=== PATIENT | female | born 1995 | race Two or more races ===

== ENCOUNTER → 2016-04-21 | Outpatient (CLI) | payer SELFPAY | LOC: RAD 09:12 | PROVIDERS: ATTEND Nurse Practitioner Women's Health | DX: Z34.81 Encounter for supervision of other normal pregnancy, first trimester (principal) | CPT/HCPCS: 76801 ==

== ENCOUNTER → 2016-09-06 | Outpatient (CLI) | payer SELFPAY ==
--- NOTE | 2016-09-06 15:18 | RADIOLOGY REPORT (SQ) ---
EXAM DESCRIPTION: U/S OB 14+ TRNABD 1GES W/O DOP COMPLETED DATE/TIME: 09/06/2016 3:08 pm REASON FOR STUDY: ENCOUNTER FOR SUPERVISION OF OTHER NORMAL , 2ND TRIMESTER (Z34.82) Z34.82 ENCOUNTER FOR SUPRVSN OF NORMAL , SECOND TRI COMPARISON: None. TECHNIQUE: Static and Dynamic grayscale imaging performed of gravid uterus using transabdominal appr oach. Additional selected color Doppler and spectral images recorded. All stored on PACS. LIMITATIONS: None. FINDINGS: EGA: 26 weeks 1 day. FELICITA: 12/12/2016. EFW: 885 g. PERCENTILE: 40th RANDY: 10.3 PLACENTA: Anterior location. PRESENTATION: Breech. ANATOMY: HEART RATE: 140 beats per minute. FOUR CHAMBER HEART: Visualized. THREE VESSEL CORD: Yes. CORD INSERTION: Visualized. KIDNEYS AND BLADDER: Visualized. Appear normal. STOMACH: Visualized. Appears normal. SPINE: Normal as visualized. BRAIN AND LATERAL VENTRICLES: Visualized. Appear normal. OTHER: No other significant finding. MATERNAL ADNEXA: Maternal ovaries not visualized. CERVICAL LENGTH: Not visualized. OTHER: No other significant finding. IMPRESSION: LIVING INTRAUTERINE . ESTIMATED GESTATIONAL AGE 26 WEEKS 1 DAY. NO VISUALIZED ANOMALIES. Trimester of : Second trimester - 13 weeks 1 day to 27 weeks 6 days. TECHNICAL DOCUMENTATION: JOB ID: [id number]- All Rights Reserved
== END ==
LOC: RAD 14:10
PROVIDERS: ATTEND Nurse Practitioner Women's Health
DX: Z34.82 Encounter for supervision of other normal pregnancy, second trimester (principal)
CPT/HCPCS: 76805

== ENCOUNTER 2016-11-21 10:14 | Outpatient (CLI) | payer SELFPAY ==
[2016-11-21 10:52] LABS: APPEARANCE,URINE CLOUDY; BILIRUBIN,URINE NEGATIVE (NEGATIVE); GLUCOSE, URINE NEGATIVE (NEGATIVE); KETONES,URINE NEGATIVE (NEGATIVE); LEUKOCYTE ESTERASE,URINE LARGE (NEGATIVE); NITRITE,URINE NEGATIVE (NEGATIVE); PROTEIN,URINE NEGATIVE (NEGATIVE); URINE SPECIFIC GRAVITY 1.015; UROBILINOGEN,URINE NEGATIVE mg/dL (<2.0)
[2016-11-21 11:01] LABS: ABSOLUTE EOSINOPHILS # (AUTO) 0.1 10^3/uL (0.0-0.6); ABSOLUTE LYMPHOCYTES (AUTO) 2.2 10^3/uL (0.5-4.7); ABSOLUTE MONOCYTES (AUTO) 0.7 10^3/uL (0.1-1.4); ABSOLUTE NEUT (AUTO) 7.4 10^3/uL (1.7-8.2); BASOPHILS % (AUTO) 0.3 % (0-2); EOSINOPHILS % (AUTO) 0.9 % (0-6); HEMATOCRIT 36.4 % (36.0-47.0); HEMOGLOBIN 12.2 g/dL (12.0-15.5); HGB HCT DIFFERENCE 0.2; LYMPHOCYTES % (AUTO) 21.2 % (13-45); MEAN CORPUSCULAR HEMOGLOBIN 31.2 pg (27.0-33.4); MEAN CORPUSCULAR HGB CONC 33.7 g/dL (32.0-36.0); MEAN CORPUSCULAR VOLUME 93 fl (80-97); MONOCYTES % (AUTO) 6.6 % (3-13); RED BLOOD COUNT 3.92 10^6/uL (3.72-5.28); RED CELL DISTRIBUTION WIDTH 13.2 % (11.5-14.0); WHITE BLOOD COUNT 10.5 10^3/uL (4.0-10.5)
[2016-11-21 11:07] LABS: URINE BARBITURATES SCREEN NEGATIVE; URINE METHADONE SCREEN NEGATIVE; URINE OPIATES LOW NEGATIVE; URINE PHENCYCLIDINE SCREEN NEGATIVE
--- NOTE | 2016-11-21 11:08 | Non Stress Test Report ---
Non Stress Test Datetime Report Generated by CPN: 11/21/2016 11:08 DEMOGRAPHIC EGA NST: 37.1 INDICATION Indication for Study: Ordered by Provider MONITORING Monitor Explained: Monitor Explained; Test Explained; Patient Verbalized Understanding Time on Monitor: 11/21/2016 10:27 Time off Monitor: 11/21/2016 11:05 NST Duration: 38 NST INTERVENTIONS NST Interventions: None Physician Notified NST: P. Turcios, CNM BABY A: [id number] BABY A Movement : Present Contraction Frequency : none FHR Baseline : 140 Accelerations : 15X15 Decelerations : None Variability : Moderate 6-25bpm NST Review: Meets Criteria for Reactive NST NST Review and Verified By : JASON Stoddard Results: Reactive NST Results: Reactive NST REPORT Report Trigger: Send Report
[2016-11-21 11:14] LABS: ALANINE AMINOTRANSFERASE 30 U/L (9-52); ALBUMIN 3.5 g/dL (3.5-5.0); ALKALINE PHOSPHATASE 166 U/L (38-126); ANION GAP 9 (5-19); ASPARTATE AMINO TRANSFERASE 17 U/L (14-36); BILIRUBIN,DIRECT 0.3 mg/dL (0.0-0.4); BILIRUBIN,TOTAL 0.6 mg/dL (0.2-1.3); BLOOD UREA NITROGEN 8 mg/dL (7-20); CALCIUM 9.1 mg/dL (8.4-10.2); CARBON DIOXIDE 22 mmol/L (22-30); CHLORIDE 105 mmol/L (98-107); CREATININE RESULT 0.51 mg/dL (0.52-1.25); GLUCOSE 97 mg/dL (75-110); LDH 468 U/L (313-618); TOTAL PROTEIN 6.7 g/dL (6.3-8.2); URIC ACID 4.2 mg/dL (2.5-6.2)
[2016-11-21 11:18] LABS: URINE CREATININE 99.8 mg/dL (16-327); URINE PROTEIN 9.4 mg/dL (<12)
== END 2016-11-21 11:38 | disposition home or self-care (01) ==
LOC: LC 10:14
PROVIDERS: ATTEND Obstetrics & Gynecology
PROC: 4A1HXCZ Monitoring of Products of Conception, Cardiac Rate, External Approach (ICD-10-PCS; principal; 2016-11-21)
DX: O26.893 Other specified pregnancy related conditions, third trimester (principal); Z3A.37 37 weeks gestation of pregnancy
CPT/HCPCS: 36415; 59025; 80053; 80307; 81001; 82570; 83615; 84156; 84550; 85025

== ENCOUNTER 2016-11-23 11:50 | Outpatient (CLI) | payer SELFPAY ==
[2016-11-23 12:45] LABS: AMNISURE (ROM) NEGATIVE (NEGATIVE)
[2016-11-23 12:58] LABS: APPEARANCE,URINE CLOUDY; BILIRUBIN,URINE NEGATIVE (NEGATIVE); GLUCOSE, URINE NEGATIVE (NEGATIVE); KETONES,URINE NEGATIVE (NEGATIVE); LEUKOCYTE ESTERASE,URINE MODERATE (NEGATIVE); NITRITE,URINE NEGATIVE (NEGATIVE); PROTEIN,URINE NEGATIVE (NEGATIVE); URINE SPECIFIC GRAVITY 1.023; UROBILINOGEN,URINE NEGATIVE mg/dL (<2.0)
[2016-11-23 13:28] LABS: URINE BARBITURATES SCREEN NEGATIVE; URINE METHADONE SCREEN NEGATIVE; URINE OPIATES LOW NEGATIVE; URINE PHENCYCLIDINE SCREEN NEGATIVE
== END 2016-11-23 13:00 | disposition home or self-care (01) ==
LOC: LC 11:50
PROVIDERS: ATTEND Student in an Organized Health Care Education/Training Program
PROC: 4A1HXCZ Monitoring of Products of Conception, Cardiac Rate, External Approach (ICD-10-PCS; principal; 2016-11-23)
DX: Z36 Encounter for antenatal screening of mother (principal); Z3A.37 37 weeks gestation of pregnancy
CPT/HCPCS: 80307; 81005; 84112

== ENCOUNTER 2016-12-18 06:28 | Inpatient (IN) | payer SELFPAY ==
[2016-12-18] MEDS ORDERED: OXYTOCIN/NORMAL SALINE 20 UNIT/1,000 ML RTUINJ IV PRN ×2 (06:42→15:39)
[2016-12-18] MEDS ORDERED: RINGERS SOLUTION,LACTATED 300 ML IV ONE (06:42)
[2016-12-18] MEDS ORDERED: RINGERS SOLUTION,LACTATED 1,000 ML IV PRN (06:42)
[2016-12-18 07:12] LABS: APPEARANCE,URINE CLOUDY; BILIRUBIN,URINE NEGATIVE (NEGATIVE); GLUCOSE, URINE NEGATIVE (NEGATIVE); KETONES,URINE NEGATIVE (NEGATIVE); LEUKOCYTE ESTERASE,URINE MODERATE (NEGATIVE); NITRITE,URINE NEGATIVE (NEGATIVE); PROTEIN,URINE NEGATIVE (NEGATIVE); URINE SPECIFIC GRAVITY 1.031; UROBILINOGEN,URINE NEGATIVE mg/dL (<2.0)
[2016-12-18] MEDS ORDERED: MISOPROSTOL 0.2 MG TABLET ONE (07:24)
[2016-12-18] MEDS ORDERED: OXYTOCIN/NORMAL SALINE 20 UNIT/1,000 ML RTUINJ ONE ×2 (07:24→17:18)
[2016-12-18] MEDS ORDERED: LIDOCAINE 1% INJ-PF (10 MG/ML) 30 ML SDV ONE (07:24)
[2016-12-18 07:26] LABS: URINE BARBITURATES SCREEN NEGATIVE; URINE METHADONE SCREEN NEGATIVE; URINE OPIATES LOW NEGATIVE; URINE PHENCYCLIDINE SCREEN NEGATIVE
[2016-12-18 07:37] LABS: ABSOLUTE EOSINOPHILS # (AUTO) 0.1 10^3/uL (0.0-0.6); ABSOLUTE LYMPHOCYTES (AUTO) 2.4 10^3/uL (0.5-4.7); ABSOLUTE MONOCYTES (AUTO) 0.7 10^3/uL (0.1-1.4); ABSOLUTE NEUT (AUTO) 5.7 10^3/uL (1.7-8.2); BASOPHILS % (AUTO) 0.4 % (0-2); EOSINOPHILS % (AUTO) 1.3 % (0-6); HEMATOCRIT 36.5 % (36.0-47.0); HEMOGLOBIN 12.4 g/dL (12.0-15.5); HGB HCT DIFFERENCE 0.7; LYMPHOCYTES % (AUTO) 26.9 % (13-45); MEAN CORPUSCULAR HGB CONC 33.8 g/dL (32.0-36.0); MEAN CORPUSCULAR VOLUME 92 fl (80-97); MONOCYTES % (AUTO) 7.7 % (3-13); RED BLOOD COUNT 3.98 10^6/uL (3.72-5.28); SEGMENTED NEUTROPHILS % (AUTO) 63.7 % (42-78)
[2016-12-18] MEDS ORDERED: NALBUPHINE HCL INJ 10 MG/1 ML AMPULE INJ ONE (11:29)
[2016-12-18] MEDS ORDERED: PROMETHAZINE HCL INJ 25 MG/1 ML VIAL IV ONE (11:30)
[2016-12-18] MEDS ORDERED: PROMETHAZINE HCL INJ 25 MG/1 ML VIAL ONE (11:31)
[2016-12-18] MEDS ORDERED: NALBUPHINE HCL INJ 10 MG/1 ML AMPULE ONE (11:32)
[2016-12-18] MEDS ORDERED: ACETAMINOPHEN 325 MG TABLET PO ONE (13:43)
[2016-12-18] MEDS ORDERED: ACETAMINOPHEN 325 MG TABLET ONE (13:44)
[2016-12-18] MEDS ORDERED: EPHEDRINE SULFATE INJ 50 MG/1 ML AMPULE ONE (13:55)
[2016-12-18] MEDS ORDERED: BUPIVACAINE HCL 0.25 % INJ/PF (2.5 MG/1 ML) 30 ML VIAL ONE (13:56)
[2016-12-18] MEDS ORDERED: FENTANYL/BUPIVACAINE/NS/PF 200 MCG/100 ML RTUINJ EPI ONE (13:56)
[2016-12-18] MEDS ORDERED: LIDOCAINE 2% INJ-PF (20 MG/ML) 10 ML AMPUL ONE (14:41)
[2016-12-18] MEDS ORDERED: ZOLPIDEM TARTRATE 5 MG TABLET PO PRN (15:39)
[2016-12-18] MEDS ORDERED: DIPH/PERTUSS(ACELL)/TETANUS VAC/PF 0.5 ML SYR (>=10YO) IM PRN (15:39)
[2016-12-18] MEDS ORDERED: BENZOCAINE/MENTHOL AEROSOL SPRAY 56 ML TOP PRN (15:39)
[2016-12-18] MEDS ORDERED: MEASLES,MUMPS&RUBELLA VACC/PF 0.5 ML VIAL SUBCUT PRN (15:39)
[2016-12-18] MEDS ORDERED: DIBUCAINE 1% OINTMENT 28 GM TP PRN (15:39)
[2016-12-18] MEDS ORDERED: ACETAMINOPHEN WITH CODEINE #3 TABLET PO PRN ×2 (15:39)
--- NOTE | 2016-12-18 16:49 | Delivery Summary ---
Del Sum A-C Datetime Report Generated by CPN: 12/18/2016 16:49 DELIVERY PERSONNEL DELIVERY PERSONNEL: [id number] Delivery Doctor:: Rekha Hou CNM Nurse Die Cast Patternmaker Certified:: Rekha Hou CNM Labor and Delivery Nurse:: Nneka Lal RNlab manager Nurse:: Edilia Hernandez RN Nursery Nurse:: Lorena Wu RN Nursery Nurse:: Krys Griffiths RN Braille Translator/NURSING TECHN: Kriss Head, AUTO APPRAISER Braille Translator/NURSING TECHN: Carmenfranny Clark, NURSING TECHN II MATERNAL INFORMATION Delivery Anesthesia: Epidural Medications After Delivery: Pitocin Bolus-Please Comment Meds After Delivery Comment: Pitocin 20 units in 1L NS bolusing per order Estimated Blood Loss (ml): 200 Maternal Complications: None Provider Comments: of viable female infant, head, shoulders, and body delivered without difficutly, infant with spontaneous cry and respirations, to maternal abdomen, cord clamped X2, cut free by pts mother, cord avulsed from placenta, placenta manually removed, vagina and perineum inspected no lacerations noted, hemostasis acheived with external fundal massage and IV pitocin, mother and infant in stable condition, routine pp care. LABOR SUMMARY EDC: 12/09/2016 00:00 No. Babies in Womb: 1 Attempted: No Labor Anesthesia: Epidural LABOR INFORMATION Reason for Induction: Post Dates Onset of Labor: 12/18/2016 13:38 Complete Dilatation: 12/18/2016 15:08 Oxytocin: Induction Group B Beta Strep: negative Antibiotics # of Doses: 0 Antibiotics Time of Last Dose: n/a Name of Antibiotic Given: n/a Steroids Given: None Reason Steroids Not Administered: Not Applicable MEMBRANES Membranes Rupture Method: Artificial Rupture of Membranes: 12/18/2016 11:25 Length of Rupture (hr): 3.90 Amniotic Fluid Color: Clear Amniotic Fluid Amount: Scant Amniotic Fluid Odor: Normal STAGES OF LABOR Stage 1 hr: 1 Stage 1 min: 30 Stage 2 hr: 0 Stage 2 min: 11 Stage 3 hr: 0 Stage 3 min: 5 Total Time in Labor hr: 1 Total Time in Labor min: 46 VAGINAL DELIVERY Episiotomy: None Laceration Extension: N/A Laceration Type: None Laceration Repair: Not Applicable Laceration Repair Note: n/a Sponge Count Correct: N/A Sharps Count Correct: N/A CSECTION DELIVERY Primary Indication: N/A Secondary Indication: N/A CSection Urgency: n/a CSection Incidence: N/A Labor: N/A Elective: N/A CSection Incision: N/A BABY A INFORMATION Infant Delivery Date/Time: 12/18/2016 15:19 Method of Delivery: Vaginal Born in Route : No : N/A Forceps: N/A Vacuum Extraction: N/A Shoulder Dystocia : No PRESENTATION/POSITION BABY A Presentation: Cephalic Cephalic Presentation: Vertex Vertex Position: Right Occipital Anterior Breech Presentation: N/A PLACENTA INFORMATION BABY A Placenta Delivery Time : 12/18/2016 15:24 Placenta Method of Delivery: Spontaneous Placenta Status: Delivered SCORES BABY A Heart Rate 1 min: >100 bpm Resp Effort 1 min: Slow, Irregular Reflex Irritability 1 min: Cough or Sneeze or Pulls Away Muscle Tone 1 min: Active Motion Color 1 min: Body [place], Extremities Blue Resuscitation Effort 1 min: Tactile Stimulation SCORE 1 MIN: 8 Heart Rate 5 min: >100 bpm Resp Effort 5 min: Good Cry Reflex Irritability 5 min: Cough or Sneeze or Pulls Away Muscle Tone 5 min: Active Motion Color 5 min: Body [place], Extremities Blue Resuscitation Effort 5 min: Tactile Stimulation SCORE 5 MIN: 9 INFANT INFORMATION BABY A Gestational Age at Delivery: 41.2 Gestational Status: Late Term- 41- 41.6 Weeks Infant Outcome : Liveborn Condition : Stable Sex: Female IDENTIFICATION BABY A Verification Date/Time: 12/18/2016 15:43 ID Band Number: [id number] Mother's Name Verified: Yes RN Verifying Infant: CHermila Hernandez, Jaden Lal WEIGHT/LENGTH BABY A Birthweight (gm): 3890 Weight (lb): 8 Weight (oz): 9 Length (in): 20.50 Length (cm): 52.07 CORD INFORMATION BABY A No. Cord Vessels: 3 Nuchal Cord : N/A Cord Blood Taken: Yes-For Eval (Mom's Blood Type - or O+) Suction: Mouth; Nose ASSESSMENT BABY A Infant Complications: Multiple Late Decels; Multiple Variable Decels Physical Findings at Delivery: Within Normal Limits; Molding of the Head; Bengali Spots Infant Respirations: Appears Normal Skin to Skin: Yes Skin to Skin Time (min): 60 Ore Crushing Dust Collector/ALS Called : No Care By: RN. Dung Anthony RN Transferred To: Remains with Mother BABY B INFORMATION : N/A SIGNATURES Assignment: Jeannie Lal MD Signature: with User ID: [email or web address] : with User ID: [email or web address]
--- NOTE | 2016-12-18 17:14 | L&D Progress Notes ---
PROGRESS NOTES Datetime Report Generated by CPN: 12/18/2016 17:14 PROGRESS NOTE Comment: CNM called to room to assess pts bleeding clots evacutated from uterus, fundus firm @ the u, bleeding better controlled, VSS, afebrile will order Unasyn 3g q. 8 hours, X3 doses. 2nd bag of IV pitocin. FETUS A Presentation: Vertex SIGNATURE SIGNATURE: [id number];[id number];[id number] SIGNATURE: [id number];[id number] SIGNATURE: [id number] SIGNATURE: [id number] Assignment: Jeannie Lal MD Signature: with User ID: [email or web address] : with User ID: [email or web address]
[2016-12-18] MEDS ORDERED: AMPICILLIN SOD/SULBACTAM 3 GM VIAL ONE (17:19)
--- NOTE | 2016-12-18 18:46 | Admission Physical ---
Datetime Report Generated by CPN: 12/18/2016 18:45 CURRENT ADMISSION Hx Assessment: The History has been Reviewed and is Current Chief Complaint: Scheduled Induction of Labor Indication for Induction: Postterm Admit Plan: Initiate Labor Induction Protocol ALLERGIES Medication Allergies: No Medication Allergies: No Known Allergies (11/21/2016) Medication Allergies: No Known Allergies (11/24/2014) Latex: No Latex Allergies Food Allergies: N/A Environmental Allergies: N/A OBSTETRICAL HISTORY EDC: 12/09/2016 00:00 : 3 Para: 2 Term: 2 : 0 SAB: 0 IAB: 0 Ectopic: 0 Livin Cesareans: 0 VBACs: 0 Multiple Births: 0 Gestational Diabetes: No Rh Sensitization: No Incompetent Cervix: No KAMALJIT: No Infertility: No ART Treatment: No Uterine Anomaly: No IUGR: No Hx Previous C/S: No Macrosomia: No Hx Loss/Stillborn: No PIH: No Hx : No Placenta Previa/Abruption: No Depression/PP Depression: No PTL/PROM: No Post Hemorrhage: No Current Procedures: Ultrasound Obstetrical History Comments: 2011 40 weeks baby girl 2012 40 weeks baby girl 2016 current SEE RECORDS Alcohol: No Marijuana : No Cocaine: No Other Illicit Drugs: No Cigarettes: Never Smoker. 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 Surgery: No Heart Disease: No Hosp/Surgery: No Autoimmune Disorder: No Anesthetic Complications: No Kidney Disease: No Abnormal Pap Smear: No Neuro/Epilepsy: No Psychiatric Disorders: No Other Medical Diseases: No Hepatitis/Liver Disease: No Significant Family History: No Varicosities/Phlebitis: No Trauma/Violence : No Thyroid Dysfunction: No Medical History Comments: obesity, utis, bilateral breast lumps resolved in August 2016 per ultrasound, headaches INFECTIOUS HISTORY Gonorrhea: No Genital Herpes: No Chlamydia: No Tuberculosis: No Syphilis: No Hepatitis: No HIV/AIDS Exposure: No Rash or Viral Illness: No HPV: No PHYSICAL EXAM General: Normal HEENT: Normal Neurologic: Normal Thyroid: Normal Heart: Normal Lungs: Normal Breast: Normal Back: Normal Abdomen: Normal Genitourinary Exam: Normal Extremities: Normal DTRs: Normal Pelvic Type: Adequate Physical Exam Comments: efw 7.5-8 pounds pelvis proven to 8 pounds FETUS A EGA: 41.2 FHR Category: Category I Presentation: Vertex Admit Comment: pit induction PLANS FOR LABOR AND DELIVERY Labor and Delivery: None Pain Management: Natural Feeding Preference: Both Benefit of Breast Feed Discussed: Yes Circumcision: N/A INFORMED CONSENT Signature: with User ID: [email or web address]
[2016-12-18] MEDS: DOCUSATE SODIUM 100 MG CAPSULE PO SCH (19:03)
[2016-12-18] MEDS: FERROUS SULFATE 325 MG TABLET PO SCH (19:03)
[2016-12-18] MEDS: IBUPROFEN 800 MG TABLET PO SCH (21:08)
[2016-12-18] MEDS ORDERED: AMPICILLIN SOD/SULBACTAM 3 GM VIAL IV SCH (22:00)
[2016-12-19] MEDS: AMPICILLIN SODIUM/SULBACTAM NA 3 GM in NORMAL SALINE 100 ML IV SCH ×2 (01:47→09:52)
[2016-12-19] MEDS: IBUPROFEN 800 MG TABLET PO SCH ×4 (06:40→21:23)
[2016-12-19 07:44] LABS: HEMOGLOBIN 12.1 g/dL (12.0-15.5); HGB HCT DIFFERENCE 0.3; MEAN CORPUSCULAR HEMOGLOBIN 30.9 pg (27.0-33.4); MEAN CORPUSCULAR HGB CONC 33.5 g/dL (32.0-36.0); MEAN CORPUSCULAR VOLUME 92 fl (80-97); RED CELL DISTRIBUTION WIDTH 14.5 % (11.5-14.0); WHITE BLOOD COUNT 13.5 10^3/uL (4.0-10.5)
[2016-12-19] MEDS: SENNOSIDES/DOCUSATE 8.6-50 MG 1 EACH TABLET PO SCH (09:53)
[2016-12-19] MEDS: FERROUS SULFATE 325 MG TABLET PO SCH ×2 (09:53→17:23)
[2016-12-19] MEDS: DOCUSATE SODIUM 100 MG CAPSULE PO SCH ×2 (09:53→17:23)
[2016-12-19] MEDS: PRENATAL VITAMIN W-O CA NO5/FE FUMARATE/FA CAPSULE PO SCH (09:54)
--- NOTE | 2016-12-19 10:41 | PDOC PROGRESS REPORT ---
Subjective-OB Subjective: Post Delivery Day: 21 year old. Denies any needs at this time Doing well, no c/o, OOB walking, voiding, family at BS Physical Exam (OB) Vital Signs: Temp Pulse Resp BP Pulse Ox 98.2 F 77 15 118/77 99 12/19/16 07:41 12/19/16 07:41 12/19/16 07:41 12/19/16 07:41 12/19/16 07:41 Intake & Output 12/18/16 12/19/16 12/20/16 06:59 06:59 06:59 Weight 109.85 kg - PIH/Pre-Eclampsia DTR's: 2 + Clonus: Negative Headache: Absent Epigastric Pain: No Visual Changes: No - Lochia Lochia Amount: Scant < 10 ml Lochia Color: Rubra/Red - Abdomen Description: Tender Hernia Present: No Fundal Description: Firm Describe if Not Midline: firm with fundal massage Fundal Height: 1/u - 2/u Objective-Diagnostic Laboratory: 12/19/16 07:14 12/19/16 07:14 WBC 13.5 H RBC 3.90 Hgb 12.1 Hct 36.0 MCV 92 MCH 30.9 MCHC 33.5 RDW 14.5 H Plt Count 260 Assessment and Plan(PN) - Assessment and Plan (1) Vaginal delivery Is this a current diagnosis for this admission?: Yes - Time Spent with Patient Time with patient: Less than 15 minutes Medications reviewed and adjusted accordingly: Yes - Disposition Anticipated Discharge: Home Within: within 24 hours
[2016-12-20] MEDS: IBUPROFEN 800 MG TABLET PO SCH (05:27)
[2016-12-20 08:58] VITALS: BP 118/83
--- NOTE | 2016-12-20 09:46 | PDOC PROGRESS REPORT ---
Subjective-OB Subjective: Post Delivery Day: 21 year old. Denies any needs at this time. Ready to go home. Physical Exam (OB) Vital Signs: Temp Pulse Resp BP Pulse Ox 97.8 F 68 17 118/83 100 12/20/16 08:09 12/20/16 08:09 12/20/16 08:09 12/20/16 08:09 12/20/16 08:09 Intake & Output 12/19/16 12/20/16 12/21/16 06:59 06:59 06:59 Intake Total 600 Balance 600 Weight 109.85 kg - PIH/Pre-Eclampsia DTR's: 2 + Clonus: Negative Headache: Absent Epigastric Pain: No Visual Changes: No - Lochia Lochia Amount: Scant < 10 ml Lochia Color: Rubra/Red - Abdomen Description: Tender, Soft Hernia Present: No Bowel Sounds: Normoactive Flatus Presence: Present Stool: No Fundal Description: Firm Describe if Not Midline: firm with fundal massage Fundal Height: u/u - u/2 Objective-Diagnostic Laboratory: 12/19/16 07:14 Assessment and Plan(PN) - Time Spent with Patient Medications reviewed and adjusted accordingly: Yes - Disposition Anticipated Discharge: Home
--- NOTE | 2016-12-20 09:50 | PDOC DISCHARGE SUMMARY ---
Final Diagnosis Discharge Date: 12/20/16 - Final Diagnosis (1) Obesity Is this a current diagnosis for this admission?: Yes (2) Is this a current diagnosis for this admission?: Yes (3) Vaginal delivery Is this a current diagnosis for this admission?: Yes Discharge Data - Discharge Medication Home Medications: No122/Iron/Folic Acid [ Multi Tablet] 1 tab PO DAILY 11/21/16 Gestational Age: 41.2 wks Reason(s) for Admission: Induction of Labor Procedures: Ultrasound Intrapartum Procedure(s): Spontaneous Vaginal Delivery - [place] Data Baby 1 Female at 1 minute: 8 at 5 minutes: 9 Weight: 3.884 kg Home with Mother: Yes Complications: No - Diagnosis Test Laboratory: Temp Pulse Resp BP Pulse Ox 97.8 F 68 17 118/83 100 12/20/16 08:09 12/20/16 08:09 12/20/16 08:09 12/20/16 08:09 12/20/16 08:09 12/18/16 12/18/16 12/19/16 06:41 07:20 07:14 RBC 3.98 3.90 Hgb 12.4 12.1 Hct 36.5 36.0 Urine Opiates Screen NEGATIVE - Discharge information/Instructions Discharge Activity: Activity As Tolerated, Balance Activity w/Rest, Pelvic Rest , Slowly Increase Activity, No tub bath Discharge Diet: Regular Disposition: HOME, SELF-CARE Follow [facility] with: [facility] in: 4, Weeks
[2016-12-20] MEDS: PRENATAL VITAMIN W-O CA NO5/FE FUMARATE/FA CAPSULE PO SCH (10:11)
[2016-12-20] MEDS: FERROUS SULFATE 325 MG TABLET PO SCH (10:12)
[2016-12-20] MEDS: SENNOSIDES/DOCUSATE 8.6-50 MG 1 EACH TABLET PO SCH (10:12)
[2016-12-20] MEDS: DOCUSATE SODIUM 100 MG CAPSULE PO SCH (10:12)
== END 2016-12-20 13:04 | disposition home or self-care (01) | DRG 775 ==
LOC: LR 06:28 → 2S 18:40
PROVIDERS: ADMIT Specialist; ATTEND Specialist
PROC: 10E0XZZ Delivery of Products of Conception, External Approach (ICD-10-PCS; principal; 2016-12-18)
PROC: 4A1HXCZ Monitoring of Products of Conception, Cardiac Rate, External Approach (ICD-10-PCS; 2016-12-18)
DX: O99.214 Obesity complicating childbirth (principal); Z68.41 Body mass index [BMI] 40.0-44.9, adult; O76 Abnormality in fetal heart rate and rhythm complicating labor and delivery; E66.9 Obesity, unspecified; O48.0 Post-term pregnancy; Z3A.41 41 weeks gestation of pregnancy; Z37.0 Single live birth
CPT/HCPCS: 36415; 80307; 81005; 85025; 85027; 86592; 86850; 86900; 86901; J0295; J2300; J2550; J2590; J3490

== ENCOUNTER 2017-05-28 13:10 | Emergency (ER) | payer OTHER ==
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
[2017-05-28 15:34] LABS: ABSOLUTE EOSINOPHILS # (AUTO) 0.1 10^3/uL (0.0-0.6); ABSOLUTE LYMPHOCYTES (AUTO) 3.2 10^3/uL (0.5-4.7); ABSOLUTE MONOCYTES (AUTO) 0.6 10^3/uL (0.1-1.4); ABSOLUTE NEUT (AUTO) 7.9 10^3/uL (1.7-8.2); BASOPHILS % (AUTO) 0.3 % (0-2); EOSINOPHILS % (AUTO) 0.5 % (0-6); HEMATOCRIT 39.3 % (36.0-47.0); HEMOGLOBIN 13.1 g/dL (12.0-15.5); LYMPHOCYTES % (AUTO) 27.1 % (13-45); MEAN CORPUSCULAR HEMOGLOBIN 31.3 pg (27.0-33.4); MEAN CORPUSCULAR HGB CONC 33.3 g/dL (32.0-36.0); MEAN CORPUSCULAR VOLUME 94 fl (80-97); MONOCYTES % (AUTO) 5.1 % (3-13); PLATELET COUNT 327 10^3/uL (150-450); RED BLOOD COUNT 4.18 10^6/uL (3.72-5.28); RED CELL DISTRIBUTION WIDTH 12.9 % (11.5-14.0); TOTAL CELLS COUNTED % (AUTO) 100 %; WHITE BLOOD COUNT 11.8 10^3/uL (4.0-10.5)
[2017-05-28 15:45] LABS: APPEARANCE,URINE CLOUDY; BILIRUBIN,URINE NEGATIVE (NEGATIVE); GLUCOSE, URINE NEGATIVE (NEGATIVE); KETONES,URINE NEGATIVE (NEGATIVE); LEUKOCYTE ESTERASE,URINE LARGE (NEGATIVE); NITRITE,URINE NEGATIVE (NEGATIVE); PROTEIN,URINE 30 mg/dL (NEGATIVE); URINE SPECIFIC GRAVITY 1.034
[2017-05-28 15:48] LABS: COLOR,URINE YELLOW
[2017-05-28 16:00] LABS: ALANINE AMINOTRANSFERASE 28 U/L (9-52); ALBUMIN 4.5 g/dL (3.5-5.0); ALKALINE PHOSPHATASE 94 U/L (38-126); ANION GAP 9 (5-19); ASPARTATE AMINO TRANSFERASE 16 U/L (14-36); BILIRUBIN,DIRECT 0.4 mg/dL (0.0-0.4); BILIRUBIN,TOTAL 0.4 mg/dL (0.2-1.3); BLOOD UREA NITROGEN 11 mg/dL (7-20); CALCIUM 9.5 mg/dL (8.4-10.2); CARBON DIOXIDE 26 mmol/L (22-30); CHLORIDE 104 mmol/L (98-107); GLUCOSE 83 mg/dL (75-110); SODIUM 139.3 mmol/L (137-145); TOTAL PROTEIN 7.7 g/dL (6.3-8.2)
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
[2017-05-28] MEDS ORDERED: KETOROLAC TROMETHAMINE INJ/PF 30 MG/1 ML SDV IV ONE (16:51)
[2017-05-28] MEDS ORDERED: NITROFURANTOIN MONOHYD/M-CRYST 100 MG CAPSULE PO ONE (16:59)
[2017-05-28 18:07] VITALS: BP 117/66
== END 2017-05-28 18:07 | disposition home or self-care (01) ==
LOC: ER 13:10
DX: S16.1XXA Strain of muscle, fascia and tendon at neck level, initial encounter (principal); M54.2 Cervicalgia; V43.52XA Car driver injured in collision with other type car in traffic accident, initial encounter; N39.0 Urinary tract infection, site not specified; R10.12 Left upper quadrant pain
CPT/HCPCS: 99284; 96374; 36415; 84703; 85025; 80053; 81001; 72125; 74177; J1885; J8499

== ENCOUNTER 2018-12-13 09:13 | Emergency (ER) | payer OTHER ==
--- NOTE | 2018-12-13 10:01 | ER Document Report ---
ED General - General Chief Complaint: Abscess Stated Complaint: SHORTNESS OF BREATH Time Seen by Provider: 12/13/18 10:00 Primary Care Provider: LUÍS BHANDARI MD [NO LOCAL MD] - Follow up as needed TRAVEL OUTSIDE OF THE [place] IN LAST 30 DAYS: No - HPI Patient complains to provider of: right breast pain Notes: patient presents for evaluation of right breast pain radiating into right axilla she is on bactrim for possible breast infection she denies worsening of pain, fever, or any drainage she is [facility] she came to the ED today because she could not be seen for recheck and was concerned given the ongoing pain - Related Data Allergies/Adverse Reactions: No Known Allergies Allergy (Verified 12/13/18 09:14) Past Medical History - Social History Smoking Status: Unknown if Ever Smoked Family History: DM, Hyperlipidemia, Malignancy. denies: Arthritis, CAD, COPD, CVA, Hypertension, Thyroid Disfunction Renal/ Medical History: Denies: Hx Peritoneal Dialysis - Immunizations Immunizations up to date: No Hx Diphtheria, Pertussis, Tetanus Vaccination: No - received 03/2012 Review of Systems - Review of Systems Constitutional: No symptoms reported EENT: No symptoms reported Cardiovascular: No symptoms reported Respiratory: No symptoms reported Gastrointestinal: No symptoms reported Genitourinary: No symptoms reported Female Genitourinary: No symptoms reported Musculoskeletal: No symptoms reported Skin: Other - breast pain on right Hematologic/Lymphatic: No symptoms reported Neurological/Psychological: No symptoms reported Physical Exam - Vital signs Vitals: Temp Pulse Resp BP Pulse Ox 98.3 F 72 18 143/68 H 98 12/13/18 09:27 12/13/18 09:27 12/13/18 09:27 12/13/18 09:27 12/13/18 09:27 Interpretation: Normal - General General appearance: Appears well, Alert - HEENT Head: Normocephalic, Atraumatic Eyes: Normal Pupils: PERRL - Respiratory Respiratory status: No respiratory distress Chest status: Nontender Breath sounds: Normal Chest palpation: Normal - Cardiovascular Rhythm: Regular Heart sounds: Normal auscultation Murmur: No - Abdominal Inspection: Normal Distension: No distension Bowel sounds: Normal Tenderness: Nontender Organomegaly: No organomegaly - Back Back: Normal, Nontender - Extremities General upper extremity: Normal inspection, Nontender, Normal color, Normal ROM, Normal temperature General lower extremity: Normal inspection, Nontender, Normal color, Normal ROM, Normal temperature, Normal weight bearing. No: Tiana's sign - Neurological Neuro grossly intact: Yes Cognition: Normal Orientation: AAOx4 [place] Coma Scale Eye Opening: Spontaneous [place] Coma Scale Verbal: Oriented Linda Coma Scale Motor: Obeys Commands Linda Coma Scale Total: 15 Speech: Normal Motor strength normal: LUE, RUE, LLE, RLE Sensory: Normal - Psychological Associated symptoms: Normal affect, Normal mood - Skin Skin Temperature: Warm Skin Moisture: Dry Skin Color: Normal Notes: chaperoned breast exam has a tender mobile nodule in 10 o clock region - nonfluctuant. no skin change or nipple discharge Course - Re-evaluation Re-evalutation: 12/13/18 10:34 have recommended continuing antibiotics and following up with [facility] as an outpatient have recommended returning to ED if she develops fever or other concerns - Vital Signs Vital signs: Temp Pulse Resp BP Pulse Ox 98.3 F 72 18 143/68 H 98 12/13/18 09:27 12/13/18 09:27 12/13/18 09:27 12/13/18 09:27 12/13/18 09:27 Discharge - Discharge Clinical Impression: Breast pain, Elevated blood pressure reading Condition: Stable Disposition: HOME, SELF-CARE Instructions: Breast Self-Examination ([facility]), Breast Lumps ([facility]) Additional Instructions: follow up with [facility] take antibiotic as directed return to the ED for worsening Referrals: LUÍS BHANDARI MD [NO LOCAL MD] - Follow up as needed
[2018-12-13 11:28] VITALS: BP 129/71
== END 2018-12-13 11:28 | disposition home or self-care (01) ==
LOC: ER 09:13
DX: N64.4 Mastodynia (principal); N63.0 Unspecified lump in unspecified breast; R03.0 Elevated blood-pressure reading, without diagnosis of hypertension
CPT/HCPCS: 99283

== ENCOUNTER → 2019-11-19 | Outpatient (CLI) | payer BC ==
--- NOTE | 2019-11-19 13:11 | WOMENS IMAGING REPORT ---
EXAM DESCRIPTION: U/S BREAST UNILATERAL, COMPL IMAGES COMPLETED DATE/TIME: 11/19/2019 12:54 pm REASON FOR STUDY: N63.11 RIGHT BREAST PALP N63.11 UNSPECIFIED LUMP IN THE RIGHT BREAST, UPPER OUTER ERVIN N64.52 NIPPLE DISCHARGE COMPARISON: None. TECHNIQUE: Real-time and static grayscale imaging performed of the right breast targeted to the area of clinical/mammographic concern. Selected color Doppler images recorded. LIMITATIONS: None. FINDINGS: MASS: The patient's palpable abnormality correlates to a 2.1 x 1.1 x 1.9 cm predominantly well-circumscribed ovoid mass with gentle lobulations and in parallel orientation without posterior s hadowing or demonstrated blood flow on Doppler interrogation. Smaller similar-appearing lesions are seen at the 1 to 2 o'clock position and 9 o'clock position. OTHER: Targeted sonographic evaluation of the right axilla demonstrates a normal-morphology lymph nod e. IMPRESSION: Findings most consistent with benign fibroadenomas. No evidence of malignancy on today' s examination. BIRAD: 2 Benign findings. RECOMMENDATION: RECOMMENDED FOLLOW-UP: Follow-up as clinically indicated. COMMENT: The patient was advised of the findings at the time of imaging and was encouraged to contin ue monthly self-breast exams and to return for any perceived changes or additional concerns. Recomme nd commencement of routine annual screening mammography at age 39. The [employer] ([employer]) has developed recommendations for screening MRI of the breast s in certain patient populations, to be used in conjunction with mammography. Breast MRI surveillanc e may be appropriate for women with more than 20% lifetime risk of developing breast cancer as deter mined by genetic testing, significant family history of the disease, or history of mantle radiation f or Hodgkins Disease. [employer] Practice Guidelines 2008. TECHNICAL DOCUMENTATION: JOB ID: [id number] 2010 [employer]- All Rights Reserved Reading location - IP/workstation name: [email or web address]
== END ==
LOC: WI 12:20
PROVIDERS: ATTEND Nurse Practitioner Family
DX: N63.11 Unspecified lump in the right breast, upper outer quadrant (principal); N64.52 Nipple discharge
CPT/HCPCS: 76641